=== PATIENT | female | born 1995 | race Caucasian/White ===

== ENCOUNTER 2017-10-16 22:20 | Emergency (ER) | payer BC ==
[2017-10-16 23:36] LABS: ABS Basophils 0.1 10^3/ul (0-0.2); ABS Eosinophils 0.4 10^3/ul (0-0.6); ABS Lymphocytes 2.8 10^3/ul (1.0-4.8); ABS Monocytes 1.1 10^3/ul (0-0.8); ABS Neutrophils 7.7 10^3/ul (1.5-7.7); ABS Nucleated RBC 0 10^3/ul; Eosinophil % 3.4 % (0-6); Hematocrit 41 % (35-47); Hemoglobin 13.5 g/dl (12.0-16.0); Lymphocyte % 23.3 % (25-47); Mean Corpuscular HGB Conc 33 g/dl (31-36); Mean Corpuscular Hemoglobin 30 pg (27-31); Mean Corpuscular Volume 89 fL (80-97); Mean Platelet Volume 8 um3 (7.4-10.4); Nucleated Red Blood Cells % 0; Platelet Count 394 10^3/ul (150-450); Red Blood Count 4.55 10^6/ul (4.0-5.4); Red Cell Distribution Width 15 % (10.5-15); White Blood Count 12.1 10^3/ul (3.5-10.8)
[2017-10-16 23:41] LABS: EGFR Non-African American 96.6 (>60)
[2017-10-17] MEDS ORDERED: Ondansetron ODT TAB* 4 MG PO ONE (01:01)
--- NOTE | 2017-10-17 01:08 | ED ---
Complex/Multi-Sys Presentation - HPI Summary HPI Summary: Patient here with nausea, vomiting, ST past 3 days. She reports this started while she was at work one night - developed facial flushing followed by nausea followed by vomiting multiple times. She continued to work her shift and was tired when she went home. Following day she experienced chest pain/burning sensation in her sternal region. She has had difficulty holding down solid foods so has been eating crackers and tried soup the other day with some difficulty. She did eat a taco earlier today and that seemed to stay down. She denies nausea at this point in time however developed symptoms of throat tongue and lip tingling/numbness and became concerned so came to the ED. Denies new foods, medication, beverages, exposure to chemicals, etc. No facial swelling, trouble breathing, throat tightness, chest pain, wheezing or coughing , rash. No history of allergies. No risk of as she does not engage in sexual intercourse with men. - History Of Current Complaint Chief Complaint: EDAllergicReaction Time Seen by Provider: 10/16/17 22:50 Hx Obtained From: Patient - Allergies/Home Medications Allergies/Adverse Reactions: Allergies Allergy/AdvReac Type Severity Reaction Status Date / Time amoxicillin Allergy Vomiting Verified 10/16/17 22:26 Penicillins Allergy Vomiting Verified 10/16/17 22:26 PMH/Surg Hx/FS Hx/Imm Hx Previously Healthy: Yes Respiratory History: Denies: Hx Asthma GI History: Denies: Hx Crohn's Disease, Hx Gall Bladder Disease, Hx Gastroesophageal Reflux Disease Musculoskeletal History: Denies: Hx Rheumatoid Arthritis, Hx Osteoporosis Infectious Disease History: No Infectious Disease History: Denies: Traveled Outside the [place] in Last 30 Days - Family History Known Family History: Positive: None - Social History Occupation: Employed Full-time - [employer] Alcohol Use: Weekly Hx Substance Use: No Substance Use Type: Reports: None Smoking Status (MU): Current Some Day Smoker Amount Used/How Often: Cigars once in a while Review of Systems Positive: Fever - subjective, Fatigue. Negative: Chills Eyes: Negative Positive: Sore Throat. Negative: Ear Ache, Nasal Discharge Negative: Palpitations, Chest Pain Positive: Vomiting, Nausea. Negative: Diarrhea Genitourinary: Negative Musculoskeletal: Negative Neurological: Negative Psychological: Normal All Other Systems Reviewed And Are Negative: Yes Physical Exam Triage Information Reviewed: Yes Vital Signs On Initial Exam: Initial Vitals Temp Pulse Resp BP Pulse Ox 97.9 F 91 15 127/91 99 10/16/17 22:22 10/16/17 22:22 10/16/17 22:22 10/16/17 22:22 10/16/17 22:22 Vital Signs Reviewed: Yes Appearance: Positive: Well-Appearing, No Pain Distress, Well-Nourished Skin: Positive: Warm, Skin Color Reflects Adequate Perfusion, Dry - No rash Head/Face: Positive: Normal Head/Face Inspection - No swelling Eyes: Positive: Normal, EOMI, Conjunctiva Clear. Negative: Conjunctiva Inflammed, Discharge ENT: Positive: Hearing grossly normal, Pharyngeal erythema, Nasal congestion - Mild, TMs normal, Tonsillar swelling, Tonsillar exudate - Right > left; + 1-2, Uvula midline. Negative: Trismus, Muffled voice, Hoarse voice, Sinus tenderness Neck: Positive: Supple, No Lymphadenopathy, Tenderness @ - Mild submandibular tenderness Respiratory/Lung Sounds: Positive: Clear to Auscultation, Breath Sounds Present. Negative: Rales, Rhonchi, Wheezes Cardiovascular: Positive: Normal, RRR, S1, S2. Negative: Murmur, Rub Abdomen Description: Positive: No Organomegaly, Soft, Other: - mild epigastric tenderness Bowel Sounds: Positive: Present Musculoskeletal: Positive: Normal, Strength/ROM Intact Neurological: Positive: Normal, Sensory/Motor Intact, Alert, Oriented to Person Place, Time, CN Intact II-III Psychiatric: Positive: Normal Diagnostics - Vital Signs Vital Signs Temp Pulse Resp BP Pulse Ox 10/16/17 22:22 97.9 F 91 15 127/91 99 - Laboratory Lab Results: Lab Results 10/16/17 10/16/17 10/17/17 Range/Units 23:15 23:15 00:27 WBC 12.1 H (3.5-10.8) 10^3/ul RBC 4.55 (4.0-5.4) 10^6/ul Hgb 13.5 (12.0-16.0) g/dl Hct 41 (35-47) % MCV 89 (80-97) fL MCH 30 (27-31) pg MCHC 33 (31-36) g/dl RDW 15 (10.5-15) % Plt Count 394 (150-450) 10^3/ul MPV 8 (7.4-10.4) um3 Neut % (Auto) 63.8 (38-83) % Lymph % (Auto) 23.3 L (25-47) % [place] % (Auto) 9.0 H (0-7) % Eos % (Auto) 3.4 (0-6) % Baso % (Auto) 0.5 (0-2) % Absolute Neuts (auto) 7.7 (1.5-7.7) 10^3/ul Absolute Lymphs (auto) 2.8 (1.0-4.8) 10^3/ul Absolute Monos (auto) 1.1 H (0-0.8) 10^3/ul Absolute Eos (auto) 0.4 (0-0.6) 10^3/ul Absolute Basos (auto) 0.1 (0-0.2) 10^3/ul Absolute Nucleated RBC 0 10^3/ul Nucleated RBC % 0 Sodium 138 (133-145) mmol/L Potassium 4.3 (3.5-5.0) mmol/L Chloride 105 (101-111) mmol/L Carbon Dioxide 27 (22-32) mmol/L Anion Gap 6 (2-11) mmol/L BUN 13 (6-24) mg/dL Creatinine 0.75 (0.51-0.95) mg/dL Est GFR ( Amer) 124.3 (>60) Est GFR (Non-Af Amer) 96.6 (>60) BUN/Creatinine Ratio 17.3 (8-20) Glucose 107 H (70-100) mg/dL Calcium 9.8 (8.6-10.3) mg/dL Total Bilirubin 0.40 (0.2-1.0) mg/dL AST 13 (13-39) U/L ALT 10 (7-52) U/L Alkaline Phosphatase 45 (34-104) U/L C-Reactive Protein 7.08 H (< 5.00) mg/L Total Protein 7.4 (6.4-8.9) g/dL Albumin 4.5 (3.2-5.2) g/dL Globulin 2.9 (2-4) g/dL Albumin/Globulin Ratio 1.6 (1-3) Amylase 36 (29-103) U/L Lipase 31 (11.0-82.0) U/L Monoscreen Negative (Negative) Influenza A (Rapid) (Negative) Influenza B (Rapid) (Negative) Group A Strep Rapid Negative (Negative) 10/17/17 Range/Units 00:28 WBC (3.5-10.8) 10^3/ul RBC (4.0-5.4) 10^6/ul Hgb (12.0-16.0) g/dl Hct (35-47) % MCV (80-97) fL MCH (27-31) pg MCHC (31-36) g/dl RDW (10.5-15) % Plt Count (150-450) 10^3/ul MPV (7.4-10.4) um3 Neut % (Auto) (38-83) % Lymph % (Auto) (25-47) % [place] % (Auto) (0-7) % Eos % (Auto) (0-6) % Baso % (Auto) (0-2) % Absolute Neuts (auto) (1.5-7.7) 10^3/ul Absolute Lymphs (auto) (1.0-4.8) 10^3/ul Absolute Monos (auto) (0-0.8) 10^3/ul Absolute Eos (auto) (0-0.6) 10^3/ul Absolute Basos (auto) (0-0.2) 10^3/ul Absolute Nucleated RBC 10^3/ul Nucleated RBC % Sodium (133-145) mmol/L Potassium (3.5-5.0) mmol/L Chloride (101-111) mmol/L Carbon Dioxide (22-32) mmol/L Anion Gap (2-11) mmol/L BUN (6-24) mg/dL Creatinine (0.51-0.95) mg/dL Est GFR ( Amer) (>60) Est GFR (Non-Af Amer) (>60) BUN/Creatinine Ratio (8-20) Glucose (70-100) mg/dL Calcium (8.6-10.3) mg/dL Total Bilirubin (0.2-1.0) mg/dL AST (13-39) U/L ALT (7-52) U/L Alkaline Phosphatase (34-104) U/L C-Reactive Protein (< 5.00) mg/L Total Protein (6.4-8.9) g/dL Albumin (3.2-5.2) g/dL Globulin (2-4) g/dL Albumin/Globulin Ratio (1-3) Amylase (29-103) U/L Lipase (11.0-82.0) U/L Monoscreen (Negative) Influenza A (Rapid) Negative (Negative) Influenza B (Rapid) Negative (Negative) Group A Strep Rapid (Negative) Result Diagrams: 10/16/17 23:15 10/16/17 23:15 Lab Statement: Any lab studies that have been ordered have been reviewed, and results considered in the medical decision making process. Complex Multi-Symp Course/Dx Course Of Treatment: Patient presents with multisystem symptoms for the past 3 days. Her white blood cells are slightly elevated along with monocytes however mononucleosis, strep and influenza tests are all negative. Her digestive labs also appear to be within normal limits and she has no abdominal pain tenderness nor nausea or vomiting while here. At the end of her visit she does request something for nausea when offered. Discussed that her one time chest pain and sensations of throat lip and tongue tingling or most likely from vomiting/acid irritation and lack of eating. She will monitor herself for signs and symptoms of anaphylactic reaction as well as worsening of what appears to be a viral syndrome. If these develop, she'll return to the emergency department. - Diagnoses Provider Diagnoses: Viral syndrome Discharge - Discharge Plan Condition: Stable Disposition: HOME Prescriptions: Ondansetron ODT TAB* [Zofran 4 MG Odt TAB*] 8 mg PO Q8H PRN #9 tab.odt PRN Reason: Nausea Patient Education Materials: Acute Nausea and Vomiting (ED), Viral Syndrome (ED ) Forms: *Work Release Referrals: No Primary Care Phys,NOPCP [Primary Care Provider] - Additional Instructions: Rest, hydrate, take anti-nausea medicine as needed. Consume clear liquids for the next 24-48 hours - advance diet as tolerated after that. For your sore throat, you may implement salt water gargles, hot tea with honey, throat lozenges. If your symptoms worsen or you develop difficulty breathing, difficulty swallowing, facial swelling, rash, intractable vomiting or diarrhea with abdominal pain, fever > 1034 F despite trying acetaminophen or ibuprofen, return to the emergency department
[2017-10-17 01:39] VITALS: BP 105/61
== END 2017-10-17 01:39 | disposition home or self-care (01) ==
LOC: ED 22:20
DX: B34.9 Viral infection, unspecified (principal); J02.9 Acute pharyngitis, unspecified; R11.2 Nausea with vomiting, unspecified; Z72.0 Tobacco use
CPT/HCPCS: 36415; 80053; 82150; 83690; 85025; 86140; 86308; 87502; 87651; 99283; A9270-GY

== ENCOUNTER 2018-08-07 09:50 | Emergency (ER) | payer BC ==
[2018-08-07 10:40] VITALS: BP 119/90
--- NOTE | 2018-08-07 12:13 | UC ---
FLU HPI - HPI Summary HPI Summary: 1 week of cough, sore throat, nausea/vomiting, headaches, fatigue and subjective fever/chills. Up-to-date flu shot. - History of Current Complaint Chief Complaint: UCGeneralIllness Stated Complaint: ST,COUGH,VOMITTING,WEAKNESS Time Seen by Provider: 08/07/18 11:40 Hx Obtained From: Patient Hx Last Menstrual Period: 08/01/18 Onset/Duration: Gradual Onset, Lasting Days, Still Present Severity Currently: Moderate Severity Initially: Moderate Pain Intensity: 8 Pain Scale Used: 0-10 Numeric Associated Signs & Symptoms: Positive: Myalgia, Cough, Sore Throat, Nasal Congestion, Headache, Vomiting - Allergy/Home Medications Allergies/Adverse Reactions: Allergies Allergy/AdvReac Type Severity Reaction Status Date / Time amoxicillin Allergy Vomiting Verified 10/16/17 22:26 Penicillins Allergy Vomiting Verified 10/16/17 22:26 Home Medications: Home Medications Dm/Acetaminophen/Doxylamine [Night Cold-Flu Relief Liq Gel] 1 each PO ONCE 08/07 [History Confirmed 08/07/18] Sertraline HCl [Zoloft] 25 mg PO DAILY 08/07/18 [History Confirmed 08/07/18] Trazodone HCl 50 mg PO BEDTIME PRN 08/07/18 [History Confirmed 08/07/18] guaiFENesin [Mucinex] 600 mg PO DAILY 08/07/18 [History Confirmed 08/07/18] PMH/Surg Hx/FS Hx/Imm Hx Psychological History: Depression - Surgical History Surgical History: Yes Surgery Procedure, Year, and Place: BILATERAL TUBES IN EARS - Family History Known Family History: Positive: None - Social History Alcohol Use: Weekly Substance Use Type: None Smoking Status (MU): Current Some Day Smoker Amount Used/How Often: CIGARS ONCE IN A WHILE Review of Systems All Other Systems Reviewed And Are Negative: Yes Constitutional: Positive: Chills, Fatigue ENT: Positive: Sore Throat, Nasal Discharge Respiratory: Positive: Cough Cardiovascular: Positive: Negative Gastrointestinal: Positive: Vomiting, Nausea Musculoskeletal: Positive: Myalgia Neurological: Positive: Headache Physical Exam Triage Information Reviewed: Yes Appearance: Well-Appearing, No Pain Distress, Well-Nourished Vital Signs: Initial Vital Signs Temp 98.7 F 08/07/18 10:34 Pulse 98 08/07/18 10:34 Resp 15 08/07/18 10:34 BP 119/90 08/07/18 10:34 Pulse Ox 100 08/07/18 10:34 Laboratory Tests 08/07/18 11:49 Group A Strep Rapid Negative Vital Signs Reviewed: Yes Eyes: Positive: Conjunctiva Clear ENT: Positive: Hearing grossly normal, Pharynx normal, TMs normal Neck: Positive: Supple, Nontender, No Lymphadenopathy Respiratory Exam: Normal Cardiovascular Exam: Normal Abdomen Description: Positive: Soft Musculoskeletal: Positive: No Edema Neurological: Positive: Alert Psychological: Positive: Age Appropriate Behavior Skin: Negative: Rashes Flu Course/Dx - Differential Dx/Diagnosis Provider Diagnosis: Acute viral syndrome Discharge - Sign-Out/Discharge Documenting (check all that apply): Patient Departure All imaging exams completed and their final reports reviewed: No Studies - Discharge Plan Condition: Stable Disposition: HOME Prescriptions: Benzonatate CAP* [Tessalon CAP*] 1 - 2 cap PO TID PRN #30 cap PRN Reason: Cough Patient Education Materials: Viral Syndrome (ED) Forms: *Work Release Referrals: No Primary Care Phys,NOPCP [Primary Care Provider] - Additional Instructions: STREP TEST NEGATIVE. YOUR SYMPTOMS ARE LIKELY VIRALLY MEDIATED AND SHOULD RESOLVE ON THEIR OWN WITH TIME. NO INDICATION FOR ANTIBIOTICS AT PRESENT. REST, HYDRATE, OTC MEDS NEEDED. WILL TREAT WITH COUGH MEDICINE. SEEK FOLLOW-UP IF YOU ARE NOT IMPROVING OVER THE NEXT 1-2 WEEKS. USE OTC AFRIN FOR NASAL CONGESTION. 2 SPRAYS IN EACH NOSTRIL TWICE DAILY NEEDED. DO NOT USE FOR MORE THAN 3-4 DAYS IN A ROW TO PREVENT DEVELOPING REBOUND CONGESTION. CALL THE NUMBER BELOW FOR ASSISTANCE IN ESTABLISHING WITH A PCP An additional resource available to assist in finding the appropriate physician for your health care needs is the [facility] ([facility]). You may contact them by calling [phone]. - Billing Disposition and Condition Condition: STABLE Disposition: Home
== END 2018-08-07 12:12 | disposition home or self-care (01) ==
LOC: UCCORT 09:50
DX: B34.9 Viral infection, unspecified (principal); Z88.0 Allergy status to penicillin; F32.9 Major depressive disorder, single episode, unspecified; F17.290 Nicotine dependence, other tobacco product, uncomplicated
CPT/HCPCS: 87651; 99212; G0463

== ENCOUNTER 2019-11-18 13:29 | Emergency (ER) | payer BC, OTHER ==
[2019-11-18 13:48] VITALS: BP 117/76
--- NOTE | 2019-11-18 14:23 | ED ---
Throat Pain/Nasal Congestion - HPI Summary HPI Summary: 24 yo WF p/e B/L ear pain left > right x few days associated with mild foul smelling d/c from left ear, pt has h/o OM as a child , denies URI sx, denies f/ c - History of Current Complaint Chief Complaint: UCEar Time Seen by Provider: 11/18/19 13:41 Hx Obtained From: Patient Onset/Duration: Sudden Onset Severity: Moderate Associated Signs And Symptoms: Positive: Negative - Allergies/Home Medications Allergies/Adverse Reactions: Allergies Allergy/AdvReac Type Severity Reaction Status Date / Time amoxicillin Allergy Vomiting Verified 11/18/19 13:45 Penicillins Allergy Vomiting Verified 11/18/19 13:45 Home Medications: Home Medications Ciproflox/Dexameth OTIC.SUSP* [Ciprodex OTIC.SUSP*] 1 drop .SEE ORDER QID #1 btl 11/18/19 [Rx] cefUROXime axetiL [Cefuroxime] 500 mg PO BID 7 Days #14 tablet 11/18/19 [Rx] PMH/Surg Hx/FS Hx/Imm Hx Previously Healthy: Yes Respiratory History: Denies: Hx Asthma GI History: Denies: Hx Crohn's Disease, Hx Gall Bladder Disease, Hx Gastroesophageal Reflux Disease Musculoskeletal History: Denies: Hx Rheumatoid Arthritis, Hx Osteoporosis - Surgical History Surgery Procedure, Year, and Place: BILATERAL TUBES IN EARS Infectious Disease History: No Infectious Disease History: Denies: Traveled Outside the [place] in Last 30 Days - Family History Known Family History: Positive: None, Non-Contributory - Social History Alcohol Use: Weekly Alcohol Amount: once a week Hx Substance Use: No Substance Use Type: Reports: None Smoking Status (MU): Former Smoker Type: Cigars Amount Used/How Often: CIGARS ONCE IN A WHILE Review of Systems Constitutional: Negative Eyes: Negative Positive: Ear Ache Cardiovascular: Negative Respiratory: Negative Negative: Shortness Of Breath, Cough Gastrointestinal: Negative Genitourinary: Negative Musculoskeletal: Negative Skin: Negative Neurological/Mental Status: Negative Psychological: Normal All Other Systems Reviewed And Are Negative: Yes Physical Exam - Summary Physical Exam Summary: Vital Signs Reviewed: Yes Appearance: Positive: No Pain Distress Skin: Positive: Warm Head/Face: Positive: Normal Head/Face Inspection Eyes: Positive: Normal ENT: Positive: B/L TM opacities, moderate posterior auricular tenderness, TTP with manipulation of left pinna Dental: Negative: Cervical Lymphadenopathy Neck: Positive: Supple Respiratory/Lung Sounds: Positive: Clear to Auscultation Cardiovascular: Positive: Normal, RRR, S1, S2 Abdomen Description: Positive: Nontender Musculoskeletal: Positive: Normal Neurological: Positive: Normal Psychiatric: Positive: Normal Triage Information Reviewed: Yes Vital Signs On Initial Exam: Initial Vitals Temp Pulse Resp BP Pulse Ox 36.5 C 92 16 117/76 100 11/18/19 13:48 11/18/19 13:48 11/18/19 13:48 11/18/19 13:48 11/18/19 13:48 Vital Signs Reviewed: Yes Appearance: Positive: Well-Appearing Diagnostics - Vital Signs Vital Signs Temp Pulse Resp BP Pulse Ox 11/18/19 13:48 36.5 C 92 16 117/76 100 - Laboratory Lab Statement: Any lab studies that have been ordered have been reviewed, and results considered in the medical decision making process. EENT Course/Dx - Diagnoses Provider Diagnoses: Otitis externa, Otitis media - Critical Care Time Critical Care Statement: Critical care time is provided exclusive of any time spent performing procedures. Discharge ED - Sign-Out/Discharge Documenting (check all that apply): Patient Departure All imaging exams completed and their final reports reviewed: No Studies - Discharge Plan Condition: Stable Disposition: HOME Prescriptions: cefUROXime axetiL [Cefuroxime] 500 mg PO BID 7 Days #14 tablet Ciproflox/Dexameth OTIC.SUSP* [Ciprodex OTIC.SUSP*] 1 drop .SEE ORDER QID #1 btl Patient Education Materials: Otitis Externa (ED), Ear Infection (ED) Forms: *Work Release Referrals: No Primary Care Phys,NOPCP [Primary Care Provider] - - Billing Disposition and Condition Condition: STABLE Disposition: Home
== END 2019-11-18 14:24 | disposition home or self-care (01) ==
LOC: UCCORT 13:29
DX: H60.93 Unspecified otitis externa, bilateral (principal); H66.93 Otitis media, unspecified, bilateral; Z88.0 Allergy status to penicillin; Z87.891 Personal history of nicotine dependence
CPT/HCPCS: 99212; G0463